=== PATIENT | female | born 1945 | race Caucasian/White ===

== ENCOUNTER 2019-09-07 08:06 | Day surgery (SDC) | payer MEDICARE, BC ==
[2019-09-02 11:42] LABS: ANION GAP 6 (5-19); BLOOD UREA NITROGEN 23 mg/dL (7-20); CALCIUM 9.8 mg/dL (8.4-10.2); CARBON DIOXIDE 30 mmol/L (22-30); CHLORIDE 99 mmol/L (98-107); GLUCOSE 82 mg/dL (75-110); POTASSIUM 5.3 mmol/L (3.6-5.0)
[2019-09-02 11:44] LABS: HEMATOCRIT 42.8 % (36.0-47.0); HEMOGLOBIN 14.9 g/dL (12.0-15.5); MEAN CORPUSCULAR HEMOGLOBIN 33.3 pg (27.0-33.4); MEAN CORPUSCULAR HGB CONC 34.7 g/dL (32.0-36.0); MEAN CORPUSCULAR VOLUME 96 fl (80-97); PLATELET COUNT 302 10^3/uL (150-450); RED BLOOD COUNT 4.46 10^6/uL (3.72-5.28); RED CELL DISTRIBUTION WIDTH 13.2 % (11.5-14.0)
[2019-09-02 12:13] LABS: ABSOLUTE LYMPHOCYTES# (MANUAL) 1.4 10^3/uL (0.5-4.7); ABSOLUTE MONOCYTES # (MANUAL) 0.4 10^3/uL (0.1-1.4); BASOPHILS % (MANUAL) 0 % (0-2); EOSINOPHILS % (MANUAL) 2 % (0-6); LYMPHOCYTES % (MANUAL) 20 % (13-45); MONOCYTES % (MANUAL) 5 % (3-13); SEGMENTED NEUTROPHILS % (MAN) 73 % (42-78); TOTAL CELLS COUNTED 100
[2019-09-02 12:14] LABS: PLATELET COMMENT ADEQUATE; RBC MORPHOLOGY COMMENT NORMO-CYTIC/CHROMIC
--- NOTE | 2019-09-02 14:32 | RADIOLOGY REPORT (SQ) ---
EXAM DESCRIPTION: CHEST PA/LATERAL IMAGES COMPLETED DATE/TIME: 09/02/2019 11:17 am REASON FOR STUDY: PRE-OP COMPARISON: None. EXAM PARAMETERS: NUMBER OF VIEWS: two views TECHNIQUE: Digital Frontal and Lateral radiographic views of the chest acquired. RADIATION DOSE: NA LIMITATIONS: none FINDINGS: LUNGS AND PLEURA: No opacities, masses or pneumothorax. No pleural effusion. MEDIASTINUM AND HILAR STRUCTURES: No masses or contour abnormalities. HEART AND VASCULAR STRUCTURES: Heart normal size. No evidence for failure. BONES: No acute findings. HARDWARE: None in the chest. OTHER: No other significant finding. IMPRESSION: NO SIGNIFICANT RADIOGRAPHIC FINDING IN THE CHEST. TECHNICAL DOCUMENTATION: JOB ID: [id number] 2010 [employer]- All Rights Reserved Reading location - IP/workstation name: [email or web address]
--- NOTE | 2019-09-02 20:51 | EKG REPORT ---
SEVERITY:- ABNORMAL ECG - SINUS RHYTHM LEFT ATRIAL ABNORMALITY LEFT AXIS DEVIATION : Confirmed by: Alaina Bailon MD 02-Sep-2019 20:50:37
[~2019-09-07 08:06] MED LIST: CEFAZOLIN SODIUM 2 GM in DEXTROSE 5%-WATER 100 ML IV PRN; LACTATED RINGERS 1000 ML IV PRN
[2019-09-07] MEDS ORDERED: BUPIVACAINE HCL 0.5 % INJ/PF 30 ML SDV ONE (08:17)
[2019-09-07] MEDS ORDERED: BUPIVACAINE HCL 0.5%-EPI 1:200000 INJ/PF 30 ML VIAL ONE (08:18)
[2019-09-07] MEDS ORDERED: PROPOFOL INJ 200 MG/20 ML VIAL IV ONE (09:43)
[2019-09-07] MEDS ORDERED: HYDROMORPHONE HCL INJ/PF 2 MG/ML AMPULE ONE (09:43)
[2019-09-07] MEDS ORDERED: MIDAZOLAM 2 MG/2 ML INJ ONE (09:43)
[2019-09-07] MEDS ORDERED: FENTANYL CITRATE INJ/PF 100 MCG/2 ML AMPUL ONE ×2 (09:43→11:27)
[2019-09-07] MEDS ORDERED: ONDANSETRON HCL INJ/PF 4 MG/2 ML SDV ONE (09:44)
[2019-09-07] MEDS ORDERED: LIDOCAINE 2% INJ-PF (20 MG/ML) 10 ML AMPUL ONE (09:44)
[2019-09-07] MEDS ORDERED: PROMETHAZINE HCL INJ 25 MG/1 ML VIAL IV PRN (10:22)
[2019-09-07] MEDS ORDERED: ONDANSETRON HCL INJ/PF 4 MG/2 ML SDV IV PRN ×2 (10:22→11:24)
[2019-09-07] MEDS ORDERED: DIPHENHYDRAMINE HCL 50 MG/ML VIAL IV PRN (10:22)
[2019-09-07] MEDS ORDERED: FENTANYL CITRATE INJ/PF 100 MCG/2 ML AMPUL IV PRN ×3 (10:22)
[2019-09-07] MEDS ORDERED: HYDROCODONE/ACETAMINOPHEN 5-325 MG TABLET PO PRN (11:24)
--- NOTE | 2019-09-07 11:25 | Discharge Summary ---
Discharge Summary (SDC) - Discharge Final Diagnosis: Right wrist tenosynovitis Date of Surgery: 09/07/19 Discharge Date: 09/07/19 Forms: ASU Anesthesia D/C Instruction, Discharge POC-Surgical Service Treatment or Instructions: Schedule Follow Up w/ Dr. Amos Hidalgo @ [facility] for Surgery to be seen in 10-14 days or as scheduled [place]: [place]: [place]: Ice and elevate Keep splint clean/dry/intact, do not remove. If your fingers become numb please unwrap the Abdoul wrap but leave the splint in place, if the sensation does not return within 30 minutes please return to the emergency department. Please use ibuprofen (Motrin or Advil) 600-800 mg every 8 hours as needed for pain or fever DO NOT TAKE w/ TORADOL may use once TORADOL complete. You may also use acetaminophen (Tylenol) 1000 mg every 4-6 hours as needed for pain or fever. Please be aware that many medications contain acetaminophen, do not exceed a total of 1000 mg of acetaminophen every 6 hours. If ibuprofen and acetaminophen are not sufficient for your pain you may take the Percocet/[place]. Please be aware that the Percocet/[place] does contain Tylenol. Stool softener of choice when on pain medication. USE OF [id number] IBUPROFEN: Ibuprofen (Advil, Nuprin, Medipren, Motrin IB) is a medication for fever and pain control. In addition, it has anti- inflammatory effects which may be beneficial, especially in the treatment of injuries. It's best to take ibuprofen with food. Persons with ulcer disease or allergy to aspirin should notify their physician of this before taking ibuprofen. Ibuprofen can be given every four to six hours, for a total of four doses daily. Age Pain or fever dose Antiinflammatory dose 6-8 yr 200 mg (1 tab) 200 mg (1 tab) 9-11 yr 200 mg (1 tab) 200-400 mg (1-2 tab) 11-14 yr 200-400 mg (1-2 tab) 400 mg (2 tab) 15-adult 400 mg (2 tab) 600 mg (3 tab) ORAL NARCOTIC MEDICATION: You have been given a prescription for pain control. This medication is a narcotic. It's best taken with food, as nausea can result if taken on an empty stomach. Don't operate machinery or drive within six hours of taking this medication. Do not combine this medicine with alcohol, or with any medication which can cause sedation (such as cold tablets or sleeping pills) unless you get permission from the physician. Narcotics tend to cause constipation. If possible, drink plenty of fluids and eat a diet high in fiber and fruits. Please be aware that prescription narcotics also have the potential for abuse. People become addicted to these medications because of the general sense of wellbeing that they induce. This feeling along with a significant reduction in tension, anxiety, and aggression provides a stimulating seductive quality to these drugs. Once your pain is under control, we encourage you to discard your unused narcotics. Prescriptions: Hydrocodone/Acetaminophen [[place] 5-325 mg Tablet] 1 tab PO Q6 PRN #25 tablet PRN Reason: Referrals: AMOS HIDALGO DO [ACTIVE STAFF] - Discharge Diet: As Tolerated Respiratory Treatments at Home: Deep Breathing/Coughing Discharge Activity: No Lifting Over 10 Pounds, No Lifting/Push/Pulling Report the Following to Your Physician Immediately: Fever over 101 Degrees, Unusual Bleeding, Redness, Swelling, Warmth, Increased Soreness
[2019-09-07] MEDS ORDERED: LIDOCAINE 1% INJ-PF (10 MG/ML) 30 ML SDV ONE (11:30)
--- NOTE | 2019-09-07 11:32 | Operative Report ---
Operative Report DATE OF SURGERY: 09/07/19 PREOPERATIVE DIAGNOSIS: Right wrist extensor tenosynovitis fourth compartment, attritional rupture EIP tendon, synovitis right index MCP joint POSTOPERATIVE DIAGNOSIS: Right wrist fourth dorsal compartment extensor tenosynovitis. Right index/EDC 1 attritional rupture. Right third carpal metacarpal boss. Right index flexor tenosynovitis/trigger finger OPERATION: Right wrist extensor tenosynovectomy fourth compartment. Tendon transfer right EDC middle finger to EDC index finger. Tendon transfer right EDC middle finger to EIP. Right third carpal metacarpal boss excision. Right index A1 acosta release with tenosynovectomy SURGEON: ALEKSANDAR HIDALGO ANESTHESIA: LMAC COMPLICATIONS: None ESTIMATED BLOOD LOSS: Minimal PROCEDURE: Indication for above procedure: 73-year-old female with history of tenosynovitis of her right fourth compartment. Patient developed extensor lag of the index finger likely secondary to attritional rupture but continued to have pain at the MCP joint. Attempted injections without resolution of patient's symptoms. Patient also had MRI demonstrating nonspecific edema throughout the fourth dorsal compartment. Patient attempted consider meds without resolution of symptoms at that point decision was made to proceed with operative intervention. Procedure In Detail: Patient was seen and evaluated in the preoperative holding area. The upper extremity was initialized and marked. Patient received 2g of Ancef IV for bacterial prophylaxis. Patient was taken back to the operative room where transferred to the operative table and placed under anesthesia. Once they were adequately anesthetized a nonsterile tourniquet was placed on the upper extremity. Block was performed lysing 20 cc of 1% lidocaine without epinephrine. A surgical team debriefing was performed ensuring all instrumentation was available, the surgical procedure was discussed with possibl e concerns reviewed. The upper extremity was prepped with chlorhexidine and alcohol and draped in a sterile fashion. A timeout was done identifying correct patient, procedure and extremity everyone in attendance agree with this and verbalized no concerns. The extremity was exsanguinated the tourniquet was inflated to 250 mmHg. Intraoperative examination demonstrated catching with palpable click at the index A1 acosta consistent with trigger finger likely contributing to patient's pain and limited motion of the index finger at that point decision was made to proceed with approach to the MCP joint index finger at the volar. Oblique skin incision was made over the A1 acosta of the index finger. A1 acosta was released which resolved patient's clicking and locking. There was moderate carolynn unt of tenosynovium throughout the FDS/FDP to the index finger tenosynovectomy was then performed. Via the volar approach a [place] elevator was placed just distal to the volar plate in order to obtain access to the MCP joint. There is no evidence of catching or locking with minimal amount of tenosynovium at this level. Wound was then copiously irrigated with normal saline. Tenosynovium was sent to pathology. Passive range of motion was placed through the MCP joint to ensure no evidence of crepitus or residual locking. Once this was confirmed skin incision was closed interrupted 4-0 nylon horizontal mattress suture. Attention then turned to fourth dorsal compartment. Longitudinal skin incision was made along the fourth dorsal compartment. Any peripheral veins were coagulated with bipolar cautery dorsally. Distal aspect of the extensor retinaculum was then opened. Significant tenosynovium was noted along the fourth dorsal compartment. Tenosynovectomy was then performed includi ng the tendons of the EDC 5, 4, 3, this was sent to pathology. There was evidence of attritional rupture of the EIP and EDC 1 likely caused by underlying carpometacarpal boss of the third CMC joint. Portion of the ECRB was then elevated along with periosteum to expose the third CMC boss. This was then resected to a smooth stable base. Wound bone was then sent to pathology for further was copiously irrigated with normal saline. ECRB and periosteum was reapproximated with interrupted 3-0 Vicryl suture to allow for smooth gliding surface. Diagnosis. EDC tendon to the index finger was then transferred to the EDC to the middle finger with a Pulvertaft weave which was sutured with 4-0 FiberWire horizontal mattress suture. Wrist was placed through range of motion to ensure adequate tension of the tendon transfer. Once confirmed remanent of the EDC was secured to the adjacent EDC to the middle finger with horizontal mattress 4-0 FiberWire suture. The EIP tendon was then transferred to the EDC to the middle finger side to side with 4-0 FiberWire horizontal mattress suture. Wrist was placed through range of motion to ensure adequate tension of the tendon transfer. Wounds were then copiously irrigated with normal saline. Tourniquet was deflated. Any peripheral bleeding was controlled with bipolar cautery. Skin was closed with interrupted 4-0 nylon horizontal mattress suture. Wound was dressed with Xeroform 4 x 4's and a radial gutter splint maintaining 25 degrees hyperextension of the index and middle finger, with wrist at 20 degrees of extension.
[2019-09-07] MEDS ORDERED: HYDROCODONE/ACETAMINOPHEN 5-325 MG TABLET ONE (12:00)
[2019-09-07 13:16] VITALS: BP 135/75
== END 2019-09-07 13:05 | disposition home or self-care (01) ==
LOC: OROUT 08:06
PROVIDERS: ATTEND Orthopaedic Surgery
DX: M65.831 Other synovitis and tenosynovitis, right forearm (principal); M66.231 Spontaneous rupture of extensor tendons, right forearm; M65.841 Other synovitis and tenosynovitis, right hand; M25.731 Osteophyte, right wrist; M65.321 Trigger finger, right index finger; Z79.899 Other long term (current) drug therapy; I10 Essential (primary) hypertension; J44.9 Chronic obstructive pulmonary disease, unspecified; F17.210 Nicotine dependence, cigarettes, uncomplicated; Z88.0 Allergy status to penicillin; Z03.818 Encounter for observation for suspected exposure to other biological agents ruled out
CPT/HCPCS: 93005; 36415 ×2; 84132; 85025; 80048; 88305 ×2; 71046; 93010; 25116; 26055; 26230; 25310; U0003; J2250; J3490 ×4; J0690; J3010; J2405; J7060; J2704; A9270; 1810; 87635; J1170